=== PATIENT | male | born 1985 | race Caucasian/White ===

== ENCOUNTER 2017-12-31 19:40 | Emergency (ER) | payer MEDICAID ==
[~2017-12-31] VITALS: Ht 177.8 cm; Wt 72.6 kg
--- NOTE | 2017-12-31 20:27 | NUR ---
DR. CUELLAR AT BEDSIDE FOR MSE.
--- NOTE | 2017-12-31 21:12 | NUR ---
Patient discharged to home in stable conditon. Written and verbal after care instructions given. Patient verbalizes understanding of instructions. PATIENT LEFT WITH STABLE GAIT.
[2017-12-31 21:14] VITALS: BP 112/82
== END 2017-12-31 21:14 | disposition home or self-care (01) ==
LOC: ER 19:44
DX: S82.842A Displaced bimalleolar fracture of left lower leg, initial encounter for closed fracture (principal); X50.1XXA Overexertion from prolonged static or awkward postures, initial encounter; Y93.89 Activity, other specified; Y92.89 Other specified places as the place of occurrence of the external cause; Y99.8 Other external cause status
CPT/HCPCS: 73610; 73630; A4663

== ENCOUNTER 2018-01-23 15:19 | Emergency (ER) | payer MEDICAID ==
[~2018-01-23] VITALS: Ht 177.8 cm; Wt 72.6 kg
[2018-01-23] MEDS ORDERED: ALPRAZOLAM 0.25 MG TABLET PO ONE ×2 (16:30→16:45)
[2018-01-23] MEDS ORDERED: ALPRAZOLAM 0.5 MG TABLET ONE (16:42)
--- NOTE | 2018-01-23 16:43 | NUR ---
PATIENT SEEN BY DR SHI. MEDICATION GIVEN ORDERED. CAST ON LEG IS CLEAN, DRY AND INTACT FROM WHAT IS VISIBLE.
--- NOTE | 2018-01-23 17:01 | NUR ---
PATIENT STATES "I HAVE TO GO RIGHT NOW" AND WALKED OUT OF ER. HE HAD HIS SCOOTER WITH HIM AND THE CAST WAS UNTOUCHED AND INTACT. HE STATES HE DOES NOT DRIVE AND KNOWS NOT TO DRIVE WHILE ON [employer]ANA[employer]...
== END 2018-01-23 17:21 | disposition left against medical advice (07) ==
LOC: ER 15:21
DX: S82.832D Other fracture of upper and lower end of left fibula, subsequent encounter for closed fracture with routine healing (principal); M79.662 Pain in left lower leg; Z88.8 Allergy status to other drugs, medicaments and biological substances; X58.XXXD Exposure to other specified factors, subsequent encounter
CPT/HCPCS: A4663

== ENCOUNTER 2018-01-23 19:16 | Emergency (ER) | payer MEDICAID ==
[~2018-01-23] VITALS: Ht 177.8 cm; Wt 72.6 kg
--- NOTE | 2018-01-23 21:20 | NUR ---
PT WAS SEEN HERE EARLIER & WAS TOLD TO GET APPROVAL BY [employer], WHICH HE GOT. LEFT LOWER LEG CAST REMOVED. FIBERGLASS SPLINT POST MOLDED SHORT LEG 4" APPLIED. [facility] WNL.
--- NOTE | 2018-01-23 21:26 | NUR ---
Patient discharged to home in stable conditon. Written and verbal after care instructions given. Patient verbalizes understanding of instructions.
[2018-01-23 22:46] VITALS: BP 114/69
== END 2018-01-23 22:47 | disposition home or self-care (01) ==
LOC: ER 19:18
DX: S82.832D Other fracture of upper and lower end of left fibula, subsequent encounter for closed fracture with routine healing (principal); Z88.8 Allergy status to other drugs, medicaments and biological substances; X58.XXXD Exposure to other specified factors, subsequent encounter
CPT/HCPCS: A4663

== ENCOUNTER 2018-04-29 09:48 | Emergency (ER) | payer MEDICAID, OTHER ==
[~2018-04-29] VITALS: Ht 177.8 cm; Wt 72.6 kg
--- NOTE | 2018-04-29 10:10 | NUR ---
Patient discharged to home in stable conditon. Written and verbal after care instructions given. Patient verbalizes understanding of instructions.
== END 2018-04-29 10:11 | disposition home or self-care (01) ==
LOC: ER 09:48
DX: H66.92 Otitis media, unspecified, left ear (principal); Z88.8 Allergy status to other drugs, medicaments and biological substances
CPT/HCPCS: A4663

== ENCOUNTER 2018-05-05 14:03 | Emergency (ER) | payer OTHER ==
[~2018-05-05] VITALS: Ht 177.8 cm; Wt 72.6 kg
--- NOTE | 2018-05-05 14:37 | NUR ---
PT WAS EVALUATED BY DR NASH. PT WAS D/C'd TO HOME. D/C INSTRUCTIONS GIVEN TO THE PT.
[2018-05-05 14:38] VITALS: BP 129/68
== END 2018-05-05 14:39 | disposition home or self-care (01) ==
LOC: ER 14:03
DX: H66.92 Otitis media, unspecified, left ear (principal); H60.92 Unspecified otitis externa, left ear; Z88.8 Allergy status to other drugs, medicaments and biological substances
CPT/HCPCS: A4663